=== PATIENT | female | born 1985 | race Caucasian/White ===

== ENCOUNTER 2019-07-29 11:08 | Emergency (ER) | payer OTHER ==
[2019-07-29] MEDS ORDERED: Sodium Chloride 0.9% 10 ML Syringe FLUSH PRN (11:44)
[2019-07-29] MEDS ORDERED: Sodium Chloride 0.9% 1,000 ML IV ONE (11:44)
[2019-07-29] MEDS ORDERED: chlordiazePOXIDE 25 MG Cap PO ONE (11:44)
[2019-07-29] MEDS ORDERED: LORazepam 2 MG/ML SDV IVPUSH ONE (11:44)
--- NOTE | 2019-07-29 11:51 | EDM.PDOCBH ---
ED HPI GENERAL MEDICAL PROBLEM - General Chief Complaint: Drug or Alcohol Abuse Stated Complaint: ALCOHOL WITHDRAWL Time Seen by Provider: 07/29/19 11:30 Source of Information: Reports: Patient History Limitations: Reports: No Limitations - History of Present Illness INITIAL COMMENTS - FREE TEXT/NARRATIVE: 33 y/o F with ETOH withdrawal. States she's been drinking up to 1 bottle of wine + six pack of beer daily x weeks. She went to [facility] this morning to get help and they recommended she be seen here. She was sober briefly this summer while , then had a miscarriage which triggered this relapse. She feels shaky and nauseated when she doesn't drink. She had 2 beers this morning to quell the shakes. She's never had a seizure. She's been able to self-manage withdrawal at home a couple of times, has never sought medical attention for withdrawal. No recent illness. She has had some vomiting. No abd pain. No additional complaint. She is motivated to stop drinking, wants to get again. - Related Data Allergies Allergy/AdvReac Type Severity Reaction Status Date / Time ibuprofen Allergy Swelling Verified 07/29/19 11:37 Home Meds: Home Meds Dextroamphetamine/Amphetamine [Adderall 20 mg Tablet] 20 mg PO ASDIRECTED [History] FLUoxetine HCl [Prozac] 40 mg PO DAILY 07/29/19 [History] chlordiazePOXIDE [Librium] 10 mg PO QID PRN #16 cap 07/29/19 [Rx] Past Medical History Psychiatric History: Reports: Addiction Social & Family History - Tobacco Use Smoking Status *Q: Never Smoker - Recreational Drug Use Recreational Drug Use: No ED ROS GENERAL - Review of Systems Review Of Systems: See Below Constitutional: Denies: Fever HEENT: Reports: No Symptoms Respiratory: Denies: Shortness of Breath Cardiovascular: Denies: Chest Pain Endocrine: Reports: No Symptoms GI/Abdominal: Reports: Vomiting : Reports: No Symptoms Musculoskeletal: Reports: No Symptoms Skin: Reports: No Symptoms Neurological: Reports: No Symptoms Psychiatric: Reports: Cravings Hematologic/Lymphatic: Reports: No Symptoms ED EXAM, BEHAVIORAL HEALTH - Physical Exam Exam: See Below Exam Limited By: No Limitations General Appearance: Alert, WD/WN, No Apparent Distress, Anxious Eye Exam: Bilateral Eye: Normal Inspection Ears: Normal External Exam Nose: Normal Inspection Throat/Mouth: Normal Inspection, Normal Oropharynx, Normal Voice, No Airway Compromise Neck: Normal Inspection, Supple Respiratory/Chest: No Respiratory Distress, Lungs Clear, Normal Breath Sounds Cardiovascular: Normal Peripheral Pulses, Regular Rate, Rhythm, No Edema, No Murmur GI/Abdominal: Soft, Non-Tender, No Distention. No: Rebound Back Exam: Normal Inspection Extremities: Normal Inspection Neurological: Alert, Normal Mood/Affect, Normal Cognition, No Motor/Sensory Deficits, Oriented x 3, Other (minimally tremulous) Psychiatric: Alert, Normal Affect, Normal Cognition, Normal Mood Skin Exam: Warm, Dry, Intact, Normal color COURSE, BEHAVIORAL HEALTH COMP - Course Vital Signs: Last Vital Signs Temp 36.9 C 07/29/19 11:34 Pulse 88 07/29/19 11:34 Resp 12 07/29/19 11:34 BP 146/99 H 07/29/19 11:34 Pulse Ox 98 07/29/19 11:34 Orders, Labs, Meds: Active Orders 24 hr Category Date Time Status Peripheral IV Care [RC] . DIRECTED Care 07/29/19 11:44 Active Peripheral IV Care [RC] . DIRECTED Care 07/29/19 11:45 Active Sodium Chloride 0.9% [Saline Flush] Med 07/29/19 11:44 Active 10 ml FLUSH ASDIRECTED PRN Peripheral IV Insertion Adult [OM.PC] Routine Oth 07/29/19 11:44 Ordered Medication Orders Sodium Chloride (Saline Flush) 10 ml FLUSH ASDIRECTED PRN PRN Reason: Keep Vein Open Last Admin: 07/29/19 12:08 Dose: 10 ml Laboratory Tests 07/29/19 07/29/19 07/29/19 Range/Units 12:05 12:05 12:05 WBC 7.34 (3.98-10.04) K/mm3 RBC 4.30 (3.98-5.22) M/mm3 Hgb 13.4 (11.2-15.7) gm/dl Hct 39.7 (34.1-44.9) % MCV 92.3 (79.4-94.8) fl MCH 31.2 (25.6-32.2) pg MCHC 33.8 (32.2-35.5) g/dl RDW Std Deviation 48.3 H (36.4-46.3) fL Plt Count 215 (182-369) K/mm3 MPV 10.5 (9.4-12.3) fl Neut % (Auto) 74.1 H (34.0-71.1) % Lymph % (Auto) 13.9 L (19.3-51.7) % [place] % (Auto) 11.3 (4.7-12.5) % Eos % (Auto) 0.4 L (0.7-5.8) Baso % (Auto) 0.3 (0.1-1.2) % Neut # (Auto) 5.44 (1.56-6.13) K/mm3 Lymph # (Auto) 1.02 L (1.18-3.74) K/mm3 [place] # (Auto) 0.83 H (0.24-0.36) K/mm3 Eos # (Auto) 0.03 L (0.04-0.36) K/mm3 Baso # (Auto) 0.02 (0.01-0.08) K/mm3 Sodium 137 (136-145) mEq/L Potassium 4.5 (3.5-5.1) mEq/L Chloride 97 L (98-107) mEq/L Carbon Dioxide 29 (21-32) mEq/L Anion Gap 15.5 H (5-15) BUN 11 (7-18) mg/dL Creatinine 0.7 (0.55-1.02) mg/dL Est Cr Clr Drug Dosing 115.31 mL/min Estimated GFR (MDRD) > 60 (>60) mL/min BUN/Creatinine Ratio 15.7 (14-18) Glucose 83 (74-106) mg/dL Calcium 9.7 (8.5-10.1) mg/dL Total Bilirubin 0.9 (0.2-1.0) mg/dL AST 180 H (15-37) U/L ALT 142 H (14-59) U/L Alkaline Phosphatase 64 (46-116) U/L Total Protein 8.3 H (6.4-8.2) g/dl Albumin 4.2 (3.4-5.0) g/dl Globulin 4.1 gm/dL Albumin/Globulin Ratio 1.0 (1-2) Urine HCG, Qual Negative (NEGATIVE) Medications Generic Name Dose Route Start Last Admin Trade Name Freq PRN Reason Stop Dose Admin Sodium Chloride 10 ml 07/29/19 11:44 07/29/19 12:08 Saline Flush FLUSH 10 ml ASDIRECTED PRN Administration Keep Vein Open Discontinued Medications Generic Name Dose Route Start Last Admin Trade Name Jaime PRN Reason Stop Dose Admin Chlordiazepoxide HCl 50 mg 07/29/19 11:44 07/29/19 12:08 Librium PO 07/29/19 11:45 50 mg ONETIME ONE Administration Sodium Chloride 1,000 mls @ 1,000 mls/hr 07/29/19 11:44 07/29/19 12:06 Normal Saline IV 07/29/19 12:43 1,000 mls/hr ONETIME ONE Administration Lorazepam 1 mg 07/29/19 11:44 07/29/19 12:07 Ativan IVPUSH 07/29/19 11:45 1 mg ONETIME ONE Administration Re-Assessment/Re-Exam: Minimally tremulous, vitals normal, normal mental status. Will give librium 50mg + ativan 1mg and reassess. Anticipate she'll be able to go home later today as her withdrawal symptoms are not severe. Departure - Departure Time of Disposition: 14:19 Disposition: Home, Self-Care 01 Clinical Impression: Alcohol withdrawal syndrome Qualifiers: Complication of substance-induced condition: uncomplicated Qualified Code(s): F10.230 - Alcohol dependence with withdrawal, uncomplicated - Discharge Information Prescriptions: chlordiazePOXIDE [Librium] 10 mg PO QID PRN #16 cap PRN Reason: alcohol withdrawal Referrals: PCP,None [Primary Care Provider] - Additional Instructions: 1. Drink plenty of fluids. 2. Your labs show mild inflammation of the liver. This should improve if you quit drinking. 2. Take chlordiazepoxide as needed for withdrawal symptoms. This evening take 2 tablets. OK to take up to another 2 tablets later tonight if you're having symptoms. Tomorrow take 1-2 tablets every 6-8 hours as needed. This medication works best when tapered - try to stretch out doses once you're feeling better. 3. Follow up with [facility] as soon as possible. 4. Return to the ED as needed for any severe withdrawal symptoms, vomiting without keeping liquids down, or other concerning symptoms. - My Orders Last 24 Hours: My Active Orders 07/29/19 11:44 Peripheral IV Care [RC] . DIRECTED Sodium Chloride 0.9% [Saline Flush] 10 ml FLUSH ASDIRECTED PRN Peripheral IV Insertion Adult [OM.PC] Routine 07/29/19 11:45 Peripheral IV Care [RC] . DIRECTED - Assessment/Plan Last 24 Hours: My Active Orders 07/29/19 11:44 Peripheral IV Care [RC] . DIRECTED Sodium Chloride 0.9% [Saline Flush] 10 ml FLUSH ASDIRECTED PRN Peripheral IV Insertion Adult [OM.PC] Routine 07/29/19 11:45 Peripheral IV Care [RC] . DIRECTED
== END 2019-07-29 14:42 | disposition home or self-care (01) ==
LOC: JD.ED 11:08
DX: F10.230 Alcohol dependence with withdrawal, uncomplicated (principal); Z88.6 Allergy status to analgesic agent
CPT/HCPCS: 36415; 80053; 81025; 85025; 96361; 96374; 99284; A9270; J2060; J7040; 99283